=== PATIENT | male | born 1960 | race African-American/Black ===

== ENCOUNTER 2019-08-31 10:51 | Emergency (ER) | payer MEDICAID ==
[~2019-08-31] VITALS: Ht 175.3 cm; Wt 66.0 kg
[2019-08-31] MEDS ORDERED: VANCOMYCIN 1 G PREMIX 200 ML IV SCH (11:45)
[2019-08-31] MEDS ORDERED: HYDROCODONE/ACETAMINOPHEN 5/325MG TABLET PO ONE (11:45)
[2019-08-31 15:00] VITALS: BP 145/48
== END 2019-08-31 15:04 | disposition home or self-care (01) ==
LOC: ER 10:51
DX: M86.171 Other acute osteomyelitis, right ankle and foot (principal); E11.9 Type 2 diabetes mellitus without complications; I10 Essential (primary) hypertension; N28.9 Disorder of kidney and ureter, unspecified; G62.89 Other specified polyneuropathies; Z89.431 Acquired absence of right foot
CPT/HCPCS: 36569; 71045; 76937; 96365; 99285; C1725; J3370